=== PATIENT | female | born 1960 | race African-American/Black ===

== ENCOUNTER 2017-09-12 13:41 | Emergency (ER) | payer MEDICAID ==
[~2017-09-12] VITALS: Ht 165.1 cm; Wt 138.0 kg
[2017-09-12 14:13] VITALS: BP 179/89
[2017-09-12] MEDS ORDERED: DIPHENHYDRAMINE 25MG CAPSULE PO ONE (17:15)
[2017-09-12] MEDS ORDERED: KETOROLAC 60MG/2ML VIAL IM ONE (17:15)
[2017-09-12 17:24] LABS: CLARITY URINE CLOUDY (CLEAR); COLOR URINE YELLOW (YELLOW); GLUCOSE URINE NEGATIVE (NEGATIVE); KETONES URINE NEGATIVE (NEGATIVE); LEUKOCYTE ESTERASE URINE NEGATIVE (NEGATIVE); NITRITE URINE NEGATIVE (NEGATIVE); OCCULT BLOOD URINE NEGATIVE (NEGATIVE); PROTEIN URINE NEGATIVE (NEGATIVE); UROBILINOGEN URINE 0.2 E.U./dL (0.2-1.0)
== END 2017-09-12 19:21 | disposition home or self-care (01) ==
LOC: ER 19:16
DX: S10.86XA Insect bite of other specified part of neck, initial encounter (principal); L25.9 Unspecified contact dermatitis, unspecified cause; F17.210 Nicotine dependence, cigarettes, uncomplicated; I10 Essential (primary) hypertension; H54.61 Unqualified visual loss, right eye, normal vision left eye; Z90.49 Acquired absence of other specified parts of digestive tract; Z98.890 Other specified postprocedural states; W57.XXXA Bitten or stung by nonvenomous insect and other nonvenomous arthropods, initial encounter; Y93.89 Activity, other specified; Y92.018 Other place in single-family (private) house as the place of occurrence of the external cause
CPT/HCPCS: 81001; 96372; 99283; J1885; Q0163

== ENCOUNTER 2019-07-03 16:45 | Emergency (ER) | payer MEDICARE, MEDICAID ==
[~2019-07-03] VITALS: Ht 162.6 cm; Wt 143.0 kg
[2019-07-03 18:58] LABS: CHLORIDE 107 mEq/L (98-107)
[2019-07-03 19:00] LABS: HEMATOCRIT. 41.5 % (36.0-48.0); HEMOGLOBIN. 13.6 g/dL (12.0-16.0); MEAN CORPUSCULAR HEMOGLOBIN 25.7 pg (28.0-32.0); MEAN CORPUSCULAR VOLUME 78.2 fL (81.0-99.0); MEAN PLATELET VOLUME 8.3 fl (7.4-10.4); PLATELET 287 x1000/uL (130-400); RED BLOOD CELL COUNT 5.31 mill/uL (4.2-5.4); RED CELL DISTRIBUTION WIDTH 16.5 % (11.6-14.6)
[2019-07-03 19:38] LABS: PLATELET ESTIMATE NORMAL
[2019-07-03 20:06] VITALS: BP 112/85
== END 2019-07-03 20:08 | disposition home or self-care (01) ==
LOC: ER 20:05
DX: R05 Cough (principal); R06.02 Shortness of breath; R09.81 Nasal congestion; M54.5 Low back pain; G89.29 Other chronic pain; I10 Essential (primary) hypertension; F17.210 Nicotine dependence, cigarettes, uncomplicated; Z71.6 Tobacco abuse counseling
CPT/HCPCS: 36415; 71045; 83880; 84484; 93005; 99284; 99406

== ENCOUNTER 2019-09-17 09:36 | Inpatient (IN) | payer MEDICARE, MEDICAID ==
[~2019-09-17] VITALS: Ht 160 cm; Wt 142.6 kg
[2019-09-17] MEDS ORDERED: LISI-186 PO (09:43)
[2019-09-17] MEDS ORDERED: SODIUM CHLORIDE 0.9% 1,000 ML IV ONE ×2 (09:45→10:46)
[2019-09-17] MEDS ORDERED: ONDANSETRON HCL 4MG/2ML INJ IV STA (10:46)
[2019-09-17] MEDS ORDERED: KETOROLAC 30MG/ML VIAL IV STA (10:46)
[2019-09-17] MEDS ORDERED: MORPHINE SULFATE 4 MG/ML CPJ (NOT FOR IM USE) IV STA (10:46)
[2019-09-17 10:49] LABS: BASOPHILS % 0.7 % (0.0-2.0); EOSINOPHILS % 0.8 % (0.0-5.0); HEMATOCRIT. 35.3 % (36.0-48.0); HEMOGLOBIN. 11.6 g/dL (12.0-16.0); LYMPHOCYTES % 19.3 % (20.0-50.0); MEAN CORPUSCULAR HEMOGLOBIN 26.2 pg (28.0-32.0); MEAN CORPUSCULAR VOLUME 79.6 fL (81.0-99.0); MEAN PLATELET VOLUME 8.3 fl (7.4-10.4); MONOCYTES % 7.7 % (2.0-8.0); NEUTROPHILS % 71.5 % (40.0-76.0); PLATELET 271 x1000/uL (130-400); RED BLOOD CELL COUNT 4.44 mill/uL (4.2-5.4); RED CELL DISTRIBUTION WIDTH 15.9 % (11.6-14.6)
[2019-09-17 10:55] LABS: CHLORIDE 110 mEq/L (98-107); PROTHROMBIN TIME 10.5 sec (9.6-11.0)
[2019-09-17 13:43] LABS: CLARITY URINE CLOUDY (CLEAR); COLOR URINE YELLOW (YELLOW); KETONES URINE TRACE (NEGATIVE); LEUKOCYTE ESTERASE URINE 1+ (NEGATIVE); NITRITE URINE NEGATIVE (NEGATIVE); OCCULT BLOOD URINE NEGATIVE (NEGATIVE); PROTEIN URINE TRACE (NEGATIVE); SPECIFIC GRAVITY URINE 1.018 (1.005-1.030)
[2019-09-17] MEDS ORDERED: POTASSIUM CHLORIDE 20MEQ TABLET SR PO ONE (13:45)
[2019-09-17] MEDS ORDERED: GUAIFENESIN 200MG/10ML SUGAR FREE UDC PO PRN (14:00)
[2019-09-17] MEDS ORDERED: KETOROLAC 15MG/ML VIAL IV PRN (14:00)
[2019-09-17] MEDS ORDERED: TRAMADOL 50MG TABLET PO PRN (14:00)
[2019-09-17] MEDS ORDERED: ONDANSETRON HCL 4MG/2ML INJ IV PRN (14:00)
[2019-09-17] MEDS ORDERED: MAGNESIUM/ALUMINUM HYDROXIDE/SIMETHICONE 30ML UDC PO PRN (14:00)
[2019-09-17] MEDS ORDERED: DOCUSATE SODIUM 100MG CAPSULE PO PRN (14:00)
[2019-09-17] MEDS ORDERED: CLONIDINE 0.1MG TABLET PO PRN (14:00)
[2019-09-17] MEDS ORDERED: NA PHOS,M-B/NA PHOS,DI-BA ENEMA 118ML PR PRN (14:00)
[2019-09-17] MEDS ORDERED: NITROGLYCERIN 0.4MG TABLET SL SL PRN (14:00)
[2019-09-17] MEDS ORDERED: LORAZEPAM 0.5MG TABLET PO PRN (14:00)
[2019-09-17] MEDS ORDERED: IPRATROPIUM/ALBUTEROL 0.5-3(2.5)MG/3ML NEB NEB PRN (14:00)
[2019-09-17] MEDS ORDERED: ZOLPIDEM TARTRATE 5MG TABLET PO PRN (14:00)
[2019-09-17] MEDS ORDERED: ACETAMINOPHEN 325MG TABLET PO PRN (14:00)
[2019-09-17 14:26] LABS: ETHANOL BLOOD < 10 mg/dL
[2019-09-17 14:27] LABS: TOTAL IRON BINDING CAPACITY 228 ug/dL (250-450)
[2019-09-17 14:29] LABS: LDL CHOLESTEROL 82 mg/dL (5-100)
[2019-09-17 14:34] LABS: HDL CHOLESTEROL 60 mg/dL (40-59)
[2019-09-17 14:43] LABS: FOLIC ACID (FOLATE) SERUM > 20.00 ng/mL (>5.38)
[2019-09-17 14:53] LABS: VITAMIN B12 SERUM 302 pg/mL (211-911)
[2019-09-17 14:55] LABS: *COCAINE SCREEN URINE PRESUMTIVE POSITIVE (NEGATIVE)
[2019-09-17 14:56] LABS: *AMPHETAMINES SCREEN URINE NEGATIVE (NEGATIVE); *BARBITURATES SCREEN URINE NEGATIVE (NEGATIVE); *BENZODIAZEPINES SCREEN URINE NEGATIVE (NEGATIVE); CANNABINOID URINE SCREEN NEGATIVE (NEGATIVE); METHADONE URINE SCREEN NEGATIVE (NEGATIVE); PHENCYCLIDINE URINE SCREEN NEGATIVE (NEGATIVE)
[2019-09-17 14:58] LABS: OPIATES URINE SCREEN PRESUMTIVE POSITIVE (NEGATIVE)
[2019-09-17] MEDS ORDERED: POTASSIUM CHLORIDE 20MEQ TABLET SR PO NR (20:30)
[2019-09-17] MEDS: ENOXAPARIN 40MG/0.4ML SYR SUBCUT SCH (21:00)
[2019-09-17] MEDS ORDERED: KCL 20MEQ/100ML PREMIX 100 ML IV NR (22:00)
[2019-09-17] MEDS: FAMOTIDINE 20MG TABLET PO SCH (22:43)
[2019-09-17] MEDS: CEFTRIAXONE 1 G PREMIX 50 ML IV SCH (22:43)
[2019-09-17] MEDS: ASCORBIC ACID 500 MG TABLET PO SCH (22:43)
[2019-09-17] MEDS: LEVOFLOXACIN 500MG PREMIX 100 ML IV SCH (22:44)
[2019-09-17] MEDS: MORPHINE SULFATE 2 MG/ML CPJ (NOT FOR IM USE) IV PRN (23:02)
[2019-09-17 23:27] VITALS: BP 120/50
[2019-09-17] MEDS ORDERED: AMLODIPINE (23:40)
[2019-09-18] MEDS: ENOXAPARIN 40MG/0.4ML SYR SUBCUT SCH ×2 (10:03→21:16)
[2019-09-18] MEDS: ASCORBIC ACID 500 MG TABLET PO SCH ×2 (10:03→21:14)
[2019-09-18] MEDS: ZINC SULFATE 220 MG ( 50 ) CAPSULE PO SCH (10:03)
[2019-09-18 12:00] VITALS: BP 131/67
[2019-09-18 16:00] VITALS: BP 133/62
[2019-09-18 20:00] VITALS: BP 120/45
[2019-09-18] MEDS: FAMOTIDINE 20MG TABLET PO SCH ×2 (21:14→21:16)
[2019-09-18] MEDS: MORPHINE SULFATE 2 MG/ML CPJ (NOT FOR IM USE) IV PRN (21:36)
[2019-09-19] VITALS (7 sets, daily range): BP systolic 118–166; BP diastolic 58–97
[2019-09-19] MEDS: CEFTRIAXONE 1 G PREMIX 50 ML IV SCH (00:34)
[2019-09-19] MEDS: LEVOFLOXACIN 500MG PREMIX 100 ML IV SCH (03:12)
[2019-09-19] MEDS: MORPHINE SULFATE 2 MG/ML CPJ (NOT FOR IM USE) IV PRN ×2 (04:09→21:25)
[2019-09-19] MEDS: ZINC SULFATE 220 MG ( 50 ) CAPSULE PO SCH (09:30)
[2019-09-19] MEDS: ASCORBIC ACID 500 MG TABLET PO SCH ×2 (09:30→21:21)
[2019-09-19] MEDS: ENOXAPARIN 40MG/0.4ML SYR SUBCUT SCH ×2 (09:30→21:22)
[2019-09-19] MEDS: FAMOTIDINE 20MG TABLET PO SCH ×2 (09:30→21:21)
[2019-09-19] MEDS ORDERED: CEFTRIAXONE 1 G PREMIX 50 ML IV SCH (22:00)
[2019-09-20] VITALS: BP 139/53
[2019-09-20] MEDS: LEVOFLOXACIN 500MG PREMIX 100 ML IV SCH (02:20)
[2019-09-20 04:00] VITALS: BP 156/86
[2019-09-20 08:00] VITALS: BP 147/60
[2019-09-20] MEDS: ENOXAPARIN 40MG/0.4ML SYR SUBCUT SCH (08:10)
[2019-09-20] MEDS: ASCORBIC ACID 500 MG TABLET PO SCH (08:10)
[2019-09-20] MEDS: ZINC SULFATE 220 MG ( 50 ) CAPSULE PO SCH (08:11)
[2019-09-20] MEDS: FAMOTIDINE 20MG TABLET PO SCH (08:11)
[2019-09-20] MEDS: MORPHINE SULFATE 2 MG/ML CPJ (NOT FOR IM USE) IV PRN (08:29)
[2019-09-20 13:18] VITALS: BP 120/76
== END 2019-09-20 15:05 | disposition home health service (06) | DRG 690 ==
LOC: ER 09:36 → 6EST 13:17 → EDBEDREQ 13:22 → SUPCPDRO 13:23 → ENRESERV 19:07
PROVIDERS: ADMIT Internal Medicine; ATTEND Internal Medicine
DX: N12 Tubulo-interstitial nephritis, not specified as acute or chronic (principal); Z68.43 Body mass index [BMI] 50.0-59.9, adult; E87.6 Hypokalemia; I10 Essential (primary) hypertension; E66.01 Morbid (severe) obesity due to excess calories; D63.8 Anemia in other chronic diseases classified elsewhere; Z90.49 Acquired absence of other specified parts of digestive tract; Z71.3 Dietary counseling and surveillance
CPT/HCPCS: 36415; 71045; 74176; 76705; 80061; 80305; 80320; 81003; 82607; 82746; 83036; 83540; 83550; 83735; 83880; 84484; 93005; 93970; 96361; 96374; 96375; 97161; 97166; 99285; C1893; J0696; J1650; J1885; J1956; J2270; J2405; J3480; J7030; J7040; G0480

== ENCOUNTER 2020-01-26 17:56 | Emergency (ER) | payer MEDICARE, MEDICAID ==
[~2020-01-26] VITALS: Ht 165.1 cm; Wt 127.0 kg
[~2020-01-26 17:56] MED LIST: AMLODIPINE; LISI-186 PO
[2020-01-26] MEDS ORDERED: IBUPROFEN 800MG TABLET PO ONE (19:30)
[2020-01-26 20:15] VITALS: BP 149/76
== END 2020-01-26 20:16 | disposition home or self-care (01) ==
LOC: ER 18:08
DX: S60.569A Insect bite (nonvenomous) of unspecified hand, initial encounter (principal); S90.869A Insect bite (nonvenomous), unspecified foot, initial encounter; S10.96XA Insect bite of unspecified part of neck, initial encounter; S30.860A Insect bite (nonvenomous) of lower back and pelvis, initial encounter; G89.29 Other chronic pain; M54.40 Lumbago with sciatica, unspecified side; L29.9 Pruritus, unspecified; I10 Essential (primary) hypertension; Z90.49 Acquired absence of other specified parts of digestive tract; Z98.890 Other specified postprocedural states; Z87.19 Personal history of other diseases of the digestive system; W57.XXXA Bitten or stung by nonvenomous insect and other nonvenomous arthropods, initial encounter; Y93.89 Activity, other specified; Y92.89 Other specified places as the place of occurrence of the external cause; Y99.8 Other external cause status
CPT/HCPCS: 99283